=== PATIENT | male | born 1970 | race Two or more races ===

== ENCOUNTER 2023-06-04 15:42 | Emergency (ER) | payer BC ==
[~2023-06-04] VITALS: Ht 170.2 cm; Wt 76.2 kg
[2023-06-04 15:59] VITALS: BP 158/106; TEMP 98.4; O2SAT 98
[2023-06-04] MEDS ORDERED: INDO-12 PO (16:07)
[2023-06-04] MEDS ORDERED: IBUPROFEN 400 MG TABLET PO ONE (16:30)
== END 2023-06-04 16:26 | disposition home or self-care (01) ==
LOC: ER 15:42
DX: M10.9 Gout, unspecified (principal)